=== PATIENT | male | born 1950 | race Caucasian/White ===

== ENCOUNTER 2018-10-18 08:52 | Emergency (ER) | payer MEDICARE, OTHER ==
[~2018-10-18] VITALS: Ht 160 cm; Wt 79.4 kg
[~2018-10-18 08:52] MED LIST: ASPIR 8181 MG ORAL; BYSTOLIC5 MG ORAL; LIVALO2 MG PO; VASCEPA1 GM PO
[2018-10-18 08:53] VITALS: BP 153/81
--- NOTE | 2018-10-18 08:53 | NUR ---
ED Nurse Note: A/OX4. BROUGHT IN BY RA 63 FROM HOME DUE TO SOB FROM PAIN 10/10 ON LEFT FLANK PAIN SINCE THIS MORNING. RA 93%,PT'S REQUESTED OXYGEN. PLACED NC 2L/MIN, O2 SAT OF 96%.
--- NOTE | 2018-10-18 09:25 | NUR ---
ED Nurse Note: BLOOD SPECIMENS SENT DOWN TO THE LAB.
[2018-10-18] MEDS ORDERED: Ketorolac 30mg Inj IV ONE (09:30)
[2018-10-18] MEDS ORDERED: Methocarbamol 750mg tab ORAL ONE (09:30)
[2018-10-18 09:50] LABS: ANION GAP 15 mmol/L (5-15); BLOOD UREA NITROGEN 27 mg/dL (7-18); CALCIUM 9.1 MG/DL (8.5-10.1); CARBON DIOXIDE 18 MMOL/L (21-32); CHLORIDE 107 MMOL/L (98-107); CREATININE 1.7 MG/DL (0.55-1.30); SODIUM 140 MMOL/L (136-145)
[2018-10-18 09:54] LABS: HEMATOCRIT 44.7 % (42.0-52.0); MEAN CORPUSCULAR VOLUME 92 FL (80-99); PLATELET COUNT 145 K/UL (150-450); RED BLOOD COUNT 4.84 M/UL (4.70-6.10); WHITE BLOOD COUNT 11.1 K/UL (4.8-10.8)
[2018-10-18 09:55] VITALS: BP 130/83
[2018-10-18 10:04] LABS: ALANINE AMINOTRANSFERASE 61 U/L (12-78); ALKALINE PHOSPHATASE 92 U/L (46-116); ASPARTATE AMINO TRANSFERASE 35 U/L (15-37); BILIRUBIN,TOTAL 0.9 MG/DL (0.2-1.0); CKMB 1.1 NG/ML (0.0-3.6); CREATINE KINASE 81 U/L (26-308)
[2018-10-18] MEDS ORDERED: LIDODERM700 M1 TOPIC (11:30)
[2018-10-18] MEDS ORDERED: TYLENOL EXTRA500 MG ORAL (11:30)
[2018-10-18] MEDS ORDERED: ROBAXIN-750750 MG PO (11:30)
[2018-10-18 11:43] VITALS: BP 121/73
--- NOTE | 2018-10-18 11:44 | NUR ---
ED Nurse Note: pt is cleared to be d/c per ERMD, pt discharge/aftercare instruction and prescription provided, pt education done via discussion and hand out, iv d/c and dressing applied, wristband removed, pt advised to follow up with pcp or return to ed if s/s worsen or new sx develop, pt verbalized understanding and agrees with plan. all belongings left with pt, pt vss, ambulatory w/ steady gait, resp even and unlabored.
--- NOTE | 2018-10-18 12:39 | Diagnostic Imaging Report ---
Indication: Dyspnea Comparison: None A single view chest radiograph was obtained. Findings: No definite infiltrate or pulmonary vascular congestion identified. The heart is enlarged. The aorta is mildly enlarged consistent with atherosclerotic vascular disease. The bones are osteopenic. Impression: No acute disease
--- NOTE | 2018-10-18 16:00 | Emergency Room Report ---
History of Present Illness General Chief Complaint: Dyspnea/Respdistress Source: Patient Present Illness HPI 68-year-old M presents ED for evaluation. Brought in by EMS for shortness of breath. Started this morning. When he woke up. Patient actually describes pain on the left side of the ribs area sharp, 8 out of 10, nonradiating. States the pain caused him to have shortness of breath. Denies shortness breath at this time but describes the pain. Worse with twisting and bending. Denies chest pain. No other aggravating relieving factors. Denies any other associated symptoms Allergies: Coded Allergies: No Known Allergies (Unverified , 10/18/18) Patient History Past Medical History: HTN, other - bladder Past Surgical History: none Pertinent Family History: none Social History: Denies: smoking, alcohol use, drug use Immunizations: UTD Reviewed Nursing Documentation: PMH: Agreed; PSxH: Agreed Nursing Documentation-PMH Hx Hypertension: Yes - High cholesterol Hx Cancer: Yes - Bladder Review of Systems All Other Systems: negative except mentioned in HPI Physical Exam Vital Signs Date Time Temp Pulse Resp B/P (MAP) Pulse Ox O2 Delivery O2 Flow Rate FiO2 10/18/18 08:45 98.4 88 20 115/82 92 Room Air 10/18/18 11:43 2.0 Sp02 EP Interpretation: reviewed, normal General Appearance: no apparent distress, alert, GCS 15, non-toxic Head: normocephalic, atraumatic Eyes: bilateral eye normal inspection, bilateral eye PERRL ENT: hearing grossly normal, normal pharynx, no angioedema, normal voice Neck: full range of motion, supple/symm/no masses Respiratory: lungs clear, normal breath sounds, speaking full sentences, other - Reproducible left-sided lateral pain Cardiovascular #1: regular rate, rhythm, no edema Cardiovascular #2: 2+ carotid (R), 2+ carotid (L), 2+ radial (R), 2+ radial (L) , 2+ dorsalis pedis (R), 2+ dorsalis pedis (L) Gastrointestinal: normal bowel sounds, non tender, soft, non-distended, no guarding, no rebound Rectal: deferred Genitourinary: normal inspection, no CVA tenderness Musculoskeletal: back normal, gait/station normal, normal range of motion, non- tender Neurologic: alert, oriented x3, responsive, motor strength/tone normal, sensory intact, speech normal Psychiatric: judgement/insight normal, memory normal, mood/affect normal, no suicidal/homicidal ideation Reflexes: 3+ bicep (R), 3+ bicep (L), 3+ tricep (R), 3+ tricep (L), 3+ knee (R) , 3+ knee (L) Skin: normal color, no rash, warm/dry, well hydrated Lymphatic: no adenopathy Medical Decision Making Diagnostic Impression: Primary Impression: Muscle strain of chest wall Qualified Codes: S29.011A - Strain of muscle and tendon of front wall of thorax, initial encounter ER Course Hospital Course 68-year-old male presents ED complaining of reproducible chest wall pain Differential diagnoses include: Rib fracture, MN/unstable angina, contusion, muscle strain Clinical course Patient placed on stretcher. After initial history and physical I ordered labs , EKG, chest x-ray. There is lateral reproducible chest wall pain. Lungs clear. I ordered Toradol , Robaxin, Lidoderm labs reviewed- cr 1.7,troponins negative, no leukocytosis, hemoglobin/ hematocrit stable EKG - NSR no acute ischemic changes interpreted by me Chest x-ray-no cardiomegaly, no rib fracture, no pneumothorax, no acute process Discussed findings with patient. Safe for discharge and close outpatient follow -up. states he has a PMD I. I feel this is a highly complex case requiring extensive working including EKG/Rhythm strip, Xray/CT/US, Blood/urine lab work, repeat exams while in ED, and administration of strong opiates/narcotics for pain control, admission to hospital or close patient follow up. Diagnosis -muscle strain of chest wall Stable and discharged to home with prescription for Tylenol, Robaxin, Lidoderm. Instructed to followup with PMD. Return to ED if symptoms recur or worsen Labs Test 10/18/18 09:20 White Blood Count 11.1 K/UL (4.8-10.8) Red Blood Count 4.84 M/UL (4.70-6.10) Hemoglobin 15.0 G/DL (14.2-18.0) Hematocrit 44.7 % (42.0-52.0) Mean Corpuscular Volume 92 FL (80-99) Mean Corpuscular Hemoglobin 31.0 PG (27.0-31.0) Mean Corpuscular Hemoglobin Concent 33.6 G/DL (32.0-36.0) Red Cell Distribution Width 12.0 % (11.6-14.8) Platelet Count 145 K/UL (150-450) Mean Platelet Volume 9.4 FL (6.5-10.1) Neutrophils (%) (Auto) % (45.0-75.0) Lymphocytes (%) (Auto) % (20.0-45.0) Monocytes (%) (Auto) % (1.0-10.0) Eosinophils (%) (Auto) % (0.0-3.0) Basophils (%) (Auto) % (0.0-2.0) Differential Total Cells Counted 100 Neutrophils % (Manual) 78 % (45-75) Lymphocytes % (Manual) 14 % (20-45) Monocytes % (Manual) 3 % (1-10) Eosinophils % (Manual) 1 % (0-3) Basophils % (Manual) 0 % (0-2) Band Neutrophils 4 % (0-8) Platelet Estimate Decreased Platelet Morphology Normal Red Blood Cell Morphology Normal Sodium Level 140 MMOL/L (136-145) Potassium Level 4.0 MMOL/L (3.5-5.1) Chloride Level 107 MMOL/L (98-107) Carbon Dioxide Level 18 MMOL/L (21-32) Anion Gap 15 mmol/L (5-15) Blood Urea Nitrogen 27 mg/dL (7-18) Creatinine 1.7 MG/DL (0.55-1.30) Estimat Glomerular Filtration Rate 40.5 mL/min (>60) Glucose Level 129 MG/DL (74-106) Calcium Level 9.1 MG/DL (8.5-10.1) Total Bilirubin 0.9 MG/DL (0.2-1.0) Aspartate Amino Transf (AST/SGOT) 35 U/L (15-37) Alanine Aminotransferase (ALT/SGPT) 61 U/L (12-78) Alkaline Phosphatase 92 U/L (46-116) Total Creatine Kinase 81 U/L (26-308) Creatine Kinase MB 1.1 NG/ML (0.0-3.6) Creatine Kinase MB Relative Index 1.3 Troponin I 0.000 ng/mL (0.000-0.056) Pro-B-Type Natriuretic Peptide 74 pg/mL (0-125) Total Protein 8.1 G/DL (6.4-8.2) Albumin 4.0 G/DL (3.4-5.0) Globulin 4.1 g/dL Albumin/Globulin Ratio 1.0 (1.0-2.7) EKG Diagnostic Results Rate: normal Rhythm: NSR ST Segments: no acute changes ASA given to the pt in ED: No Rhythm Strip Diag. Results EP Interpretation: yes Rhythm: NSR, no PVC's, no ectopy Chest X-Ray Diagnostic Results Chest X-Ray Diagnostic Results : Chest X-Ray Ordered: Yes # of Views/Limited/Complete: 1 View Indication: Chest Pain EP Interpretation: Yes Interpretation: no consolidation, no effusion, no pneumothorax, no acute cardiopulmonary disease Impression: No acute disease Electronically Signed by: Electronically signed by Aldo Hernandez MD Last Vital Signs Date Time Temp Pulse Resp B/P (MAP) Pulse Ox O2 Delivery O2 Flow Rate FiO2 10/18/18 11:46 98.2 10/18/18 11:43 80 16 121/73 97 Nasal Cannula 2.0 Status: improved Disposition: HOME, SELF-CARE Condition: Stable Scripts Lidocaine (Lidoderm) 1 Each Adh..patch 1 PATCH TOPIC DAILY, #7 PATCH 0 Refills Patch(es) may remain in place for up to 12 hours in any 24-hour period. Prov: Aldo Hernandez MD 10/18/18 Methocarbamol* (ROBAXIN-750*) 750 Mg Tablet 750 MG PO TID, #21 TAB 0 Refills Prov: Aldo Hernandez MD 10/18/18 Acetaminophen* (TYLENOL EXTRA STRENGTH*) 500 Mg Tablet 500 MG ORAL Q8H PRN for Prn Headache/Temp > 101, #30 TAB 0 Refills Prov: Aldo Hernandez MD 10/18/18 Referrals: LEBRON MCCRAY MD NOT CHOSEN IPA/MD,REFERRING (PCP) Patient Instructions: Chest Wall Pain, [id number] Aldo Hernandez MD Oct 18, 2018 16:00
--- NOTE | 2018-10-19 15:33 | Cardiology Report ---
APPROVED REPORT EKG Measurement Heart [id number] Normal sinus rhythm Cannot rule out Anterior infarct, age undetermined Abnormal ECG
== END 2018-10-18 11:46 | disposition home or self-care (01) ==
LOC: EDBD 08:52 → EMR 10:07
DX: S29.011A Strain of muscle and tendon of front wall of thorax, initial encounter (principal); Z85.51 Personal history of malignant neoplasm of bladder; I10 Essential (primary) hypertension; E78.00 Pure hypercholesterolemia, unspecified; X58.XXXA Exposure to other specified factors, initial encounter; Y92.9 Unspecified place or not applicable
CPT/HCPCS: 36415; 71045; 80053; 82550; 82553; 83880; 84484; 85007; 85025; 93005; 96374; 99284; J1885